=== PATIENT | male | born 1985 | race Caucasian/White ===

== ENCOUNTER 2016-12-09 18:05 | Emergency (ER) | payer OTHER ==
[2016-12-09] MEDS ORDERED: Metoclopramide IV* 5 MG/ML 2 ML VIAL IV ONE (19:55)
[2016-12-09] MEDS ORDERED: NS 0.9% 1000 ML* 1,000 ML IV ONE (19:55)
[2016-12-09] MEDS ORDERED: diPHENhydraMINE IV* 50 MG/ML 1 ml VIAL (BENADRYL) IV ONE (19:55)
[2016-12-09] MEDS ORDERED: Ketorolac INJ* 30 MG/ML 1 ML VIAL IV ONE (19:55)
--- NOTE | 2016-12-09 20:24 | RAD ---
INDICATION: Headaches COMPARISON: None TECHNIQUE: Noncontrast axial source images were acquired from the skull base to the vertex. FINDINGS: Ventricles/sulci: The ventricles and cisterns are normal in size and configuration for age. Brain parenchyma: There is no focal parenchymal finding, evidence of intracranial mass, or intracranial mass effect. Intracranial hemorrhage:None. Extra-axial spaces: There are no abnormal extra axial fluid collections or evidence of extra-axial mass. Calvarium: There is no calvarial fracture or other calvarial abnormality. Scalp: There is no evidence of scalp or extracalvarial soft tissue abnormality. Paranasal sinuses/mastoid: The paranasal sinuses and mastoid air cells are clear. Other: None. IMPRESSION: NO ACUTE INTRACRANIAL FINDINGS
[2016-12-09 20:39] LABS: Hematocrit 48 % (42-52); Hemoglobin 16.4 g/dl (14.0-18.0); Mean Corpuscular HGB Conc 34 g/dl (31-36); Mean Corpuscular Hemoglobin 31 pg (27-31); Mean Corpuscular Volume 91 fL (80-94); Mean Platelet Volume 8 um3 (7.4-10.4); Red Blood Count 5.28 10^6/ul (4.0-5.4); Red Cell Distribution Width 14 % (10.5-15); White Blood Count 7.4 10^3/ul (3.5-10.8)
[2016-12-09 20:54] LABS: Albumin 4.5 g/dL (3.2-5.2); BUN/Creatinine Ratio 14.8 (8-20); Calcium 10.2 mg/dL (8.6-10.3); EGFR African American 128.3 (>60); EGFR Non-African American 99.7 (>60); Globulin 3.1 g/dL (2-4); Total Bilirubin 0.5 mg/dL (0.2-1.0); Total Protein 7.6 g/dL (6.4-8.9)
[2016-12-09] MEDS ORDERED: Morphine INJ* 4 MG/ML 1 ML CARPUJECT IV ONE (21:00)
[2016-12-09 21:26] LABS: Urine Bacteria Absent (Absent); Urine Bilirubin Negative (Negative); Urine Glucose Negative (Negative); Urine Nitrite Negative (Negative)
[2016-12-09 21:28] LABS: Erythrocyte Sed Rate 6 mm/Hr (0-14)
--- NOTE | 2016-12-09 21:30 | ED ---
williams Snyder Timothy, scribed for Jose Arteaga MD on 12/09/16 at 1952 . Headache - HPI Summary HPI Summary: Ck Black is a 31 yo male presenting to [facility] with 10/10 PATEL for the past month , and now is experiencing intermittent sharp, non-radiating CP for the past month as well. He states he occasionally has SOB, but attributes this to asthma. The PATEL is in the top of his head, and he states his neck is sore. He is photophobic, but denies fever, sore throat, or nasal discharge. He also c/o nausea and feelings of weakness. He also has lost his appetite. His girlfriend present in room states his heart races when he lies down at night. He has self- medicated with excedrin migraine. His MHx includes asthma, esophageal ulcer, and marijuana and tobacco use. - History Of Current Complaint Chief Complaint: EDChestPainROMI Stated Complaint: CHEST PAIN, DIZZY , Time Seen by Provider: 12/09/16 19:44 Hx Obtained From: Patient Onset/Duration: Gradual Onset, Started weeks ago, Still Present Initially Headache Was: Initial Pain Scale(0-10)= - 10 Currently Pain Is: Current Pain Scale(0-10)= - 10 Timing: Intermittent, Lasting: Character: Typical Headache Location of Headache: Parietal Aggravating Factor: Bright Lights Allevating Factors: Nothing Associated Signs And Symptoms: Nausea, Neck Pain, Visual Changes - photophobia - Allergies/Home Medications Allergies/Adverse Reactions: Allergies Allergy/AdvReac Type Severity Reaction Status Date / Time Aspirin Allergy Shortness Verified 05/22/16 20:56 of Breath PMH/Surg Hx/FS Hx/Imm Hx Endocrine/Hematology History: Denies: Hx Diabetes, Hx Thyroid Disease Cardiovascular History: Denies: Hx Hypertension, Hx Pacemaker/ICD Respiratory History: Reports: Hx Asthma - albuterol inhaler as needed Denies: Hx Chronic Obstructive Pulmonary Disease (COPD) GI History: Reports: Hx Ulcer - esophageal Sensory History: Denies: Hx Hearing Aid Psychiatric History: Denies: Hx Panic Disorder Infectious Disease History: No Infectious Disease History: Denies: Hx Clostridium Difficile, Hx Hepatitis, Hx Human Immunodeficiency Virus (HIV), Hx of Known/Suspected MRSA, Hx Shingles, Hx Tuberculosis, Hx Known/ Suspected VRE, Hx Known/Suspected VRSA, History Other Infectious Disease, Traveled Outside the [place] in Last 30 Days - Family History Known Family History: Positive: Cardiac Disease, Hypertension, Diabetes, Other - pancreatic CA, sleep apnea - Social History Alcohol Use: None Substance Use Type: Reports: Marijuana Substance Use Comment - Amount & Last Used: occasionally Smoking Status (MU): Heavy Every Day Tobacco Smoker Type: Cigarettes Amount Used/How Often: 1PPD Length of Time of Smoking/Using Tobacco: 15+years Have You Smoked in the Last Year: Yes Review of Systems Constitutional: Negative Positive: Photophobia ENT: Other - neck soreness Cardiovascular: Negative Positive: Shortness Of Breath - attributed to asthma Positive: Nausea Genitourinary: Negative Musculoskeletal: Negative Skin: Negative Positive: Headache, Weakness Psychological: Normal All Other Systems Reviewed And Are Negative: Yes Physical Exam Vital Signs On Initial Exam: Initial Vitals Temp Pulse Resp BP Pulse Ox 97.2 F 79 20 151/91 100 12/09/16 18:06 12/09/16 18:06 12/09/16 18:06 12/09/16 18:06 12/09/16 18:06 Diagnostics - Vital Signs Vital Signs Temp Pulse Resp BP Pulse Ox 12/09/16 19:27 148/82 99 12/09/16 18:06 97.2 F 79 20 151/91 100 - Laboratory Lab Results: Lab Results 12/09/16 12/09/16 12/09/16 Range/Units 20:25 20:25 20:25 WBC 7.4 (3.5-10.8) 10^3/ul RBC 5.28 (4.0-5.4) 10^6/ul Hgb 16.4 (14.0-18.0) g/dl Hct 48 (42-52) % MCV 91 (80-94) fL MCH 31 (27-31) pg MCHC 34 (31-36) g/dl RDW 14 (10.5-15) % Plt Count 265 (150-450) 10^3/ul MPV 8 (7.4-10.4) um3 Neut % (Auto) 51.0 (38-83) % Lymph % (Auto) 37.0 (25-47) % Quay % (Auto) 8.1 (1-9) % Eos % (Auto) 3.5 (0-6) % Baso % (Auto) 0.4 (0-2) % Absolute Neuts (auto) 3.8 (1.5-7.7) 10^3/ul Absolute Lymphs (auto) 2.7 (1.0-4.8) 10^3/ul Absolute Monos (auto) 0.6 (0-0.8) 10^3/ul Absolute Eos (auto) 0.3 (0-0.6) 10^3/ul Absolute Basos (auto) 0 (0-0.2) 10^3/ul Absolute Nucleated RBC 0.01 10^3/ul Nucleated RBC % 0.1 ESR Pending Carbon Monoxide Screen 5.8 H (<3.5) % Sodium 138 (133-145) mmol/L Potassium 4.0 (3.5-5.0) mmol/L Chloride 102 (101-111) mmol/L Carbon Dioxide 32 (22-32) mmol/L Anion Gap 4 (2-11) mmol/L BUN 13 (6-24) mg/dL Creatinine 0.88 (0.67-1.17) mg/dL Est GFR ( Amer) 128.3 (>60) Est GFR (Non-Af Amer) 99.7 (>60) BUN/Creatinine Ratio 14.8 (8-20) Glucose 105 H (70-100) mg/dL Calcium 10.2 (8.6-10.3) mg/dL Total Bilirubin 0.50 (0.2-1.0) mg/dL AST 19 (13-39) U/L ALT 23 (7-52) U/L Alkaline Phosphatase 56 (34-104) U/L Total Protein 7.6 (6.4-8.9) g/dL Albumin 4.5 (3.2-5.2) g/dL Globulin 3.1 (2-4) g/dL Albumin/Globulin Ratio 1.5 (1-3) Result Diagrams: 12/09/16 20:25 12/09/16 20:25 Lab Statement: Any lab studies that have been ordered have been reviewed, and results considered in the medical decision making process. - CT Brain CT Interpretation: No Acute Changes - IMPRESSION: NO ACUTE INTRACRANIAL FINDINGS CT Interpretation Completed By: Radiologist - EKG 1814 Cardiac Rate: NL - 67 BPM EKG Interpretation: NSR @ 67 BPM, no ST elevations Headache Course/Dx - Course Assessment/Plan: Ck Black is a 31 yo male presenting to [facility] with CP, PATEL, nausea, photophobia, and weakness for the past month. Pt's blood work is within normal limits, excepting his glucose of 105. CT Brain showes no acute pathalogy. In the ED course, Pt was given benadryl, reglan, IV fluids, toradol, and morphine for pain management. Patient was offered a LP if symptoms do not improve. He declined. Pt's symptoms are improving. Pt has been having PATEL for 1 month, therefore, at this point, Pt will be d/c for follow up with his PCP. Pt has a undiagnosed, self-reported Hx of migraine PATEL, therefore, I believe these Sx are exacerbation of his condition. Pt is hemodynamically stable and A&Ox3. He displays no acute neurological focal deficits. I discussed all the findings and test results with the patient. Patient was instructed to return to the emergency room immediately if any of the symptoms return or worsens. Patient understands and agrees. Plan of care was discussed with the patient and patient understands and agrees with the plan of care. All questions were answered at patient satisfaction. There were no further complaints or concerns. Patient is alert and oriented x 3. Patient vital signs are stable. Patient is to follow up with primary care physician in the next 2 to 3 days. Patient understands and agrees. - Diagnoses Provider Diagnoses: Migraine headache Discharge - Discharge Plan Condition: Stable Disposition: HOME Patient Education Materials: Migraine Headache (ED) Referrals: Leatha Ellis MD [Primary Care Provider] - As Soon As Possible Additional Instructions: Please follow up with your primary care physician as soon as possible regarding your visit to the emergency department today. Return to the emergency department with any new or recurring symptoms. The documentation as recorded by the williams bernard Timothy accurately reflects the service I personally performed and the decisions made by me, Jose Arteaga MD.
[2016-12-09 21:34] LABS: Benzodiazepine Urine Screen Presumptive Positive (None Detect)
[2016-12-10 07:18] VITALS: BP 138/72
== END 2016-12-09 21:00 | disposition home or self-care (01) ==
LOC: ED 18:05
DX: G43.909 Migraine, unspecified, not intractable, without status migrainosus (principal); R11.0 Nausea; M54.2 Cervicalgia; R06.02 Shortness of breath; R51 Headache; F17.210 Nicotine dependence, cigarettes, uncomplicated
CPT/HCPCS: 36415; 70450; 80053; 80307; 81003; 81015; 82375; 85025; 85652; 86618; 87086; 93005; 96374; 96375; 99282; J1200; J1885; J2270; J2765

== ENCOUNTER 2017-12-24 19:59 | Emergency (ER) | payer OTHER ==
[2017-12-24 20:09] VITALS: BP 159/99
[2017-12-24] MEDS ORDERED: Albuterol/Ipratropium NEB.SOL* Albuterol 2.5 MG/Ipratropium 0.5 MG 3 ML INH ONE (20:22)
[2017-12-24] MEDS ORDERED: predniSONE TAB* 20 MG PO ONE (20:22)
--- NOTE | 2017-12-24 20:51 | RAD ---
HISTORY: Cough COMPARISONS: November 19, 2011 VIEWS: 4: Frontal dual-energy and lateral views of the chest. FINDINGS: CARDIOMEDIASTINAL SILHOUETTE: The cardiomediastinal silhouette is normal. MORELIA: The morelia are normal. PLEURA: The costophrenic angles are sharp. No pleural abnormalities are noted. LUNG PARENCHYMA: The lungs are clear. ABDOMEN: The upper abdomen is clear. There is no subphrenic gas. BONES AND SOFT TISSUES: Degenerative changes are noted along the spine. OTHER: None. IMPRESSION: NO ACTIVE CARDIOPULMONARY DISEASE.
--- NOTE | 2017-12-25 21:37 | UC ---
Shalom Snyder Gabriel, scribed for Jose Arteaga MD on 12/24/17 at 2022 . Cardiac HPI - HPI Summary HPI Summary: This patient is a 32 year old M presenting to [facility] with a chief complaint of CP since a week ago. The patient rates the pain 5/10 in severity. Symptoms aggravated by coughing. Patient reports cough, wheezing, lung pain, fever, diaphoresis, and PATEL. Patient denies GERD. - History of Current Complaint Chief Complaint: UCChestPain Stated Complaint: CHEST CONGESTION/pain Time Seen by Provider: 12/24/17 20:09 Hx Obtained From: Patient Onset/Duration: Lasting Weeks, Still Present Timing: Constant Initial Severity: Moderate Pain Intensity: 5 Associated Signs & Symptoms: Positive: Negative - GERD, Fever, Diaphoresis - Allergy/Home Medications Allergies/Adverse Reactions: Allergies Allergy/AdvReac Type Severity Reaction Status Date / Time aspirin Allergy Shortness Verified 12/24/17 20:14 of Breath Home Medications: Home Medications Al Hydrox/Mg Hydrox/Rosalino BULK* [Mylanta - BULK BOT*] 6 teasp PO Q8HR 12/24/17 [ History Confirmed 12/24/17] PMH/Surg Hx/FS Hx/Imm Hx Respiratory History: Asthma GI/ History: Gastroesophageal Reflux - Surgical History Surgical History: None - Family History Known Family History: Positive: Cardiac Disease, Hypertension, Diabetes, Other - pancreatic CA, sleep apnea - Social History Occupation: Employed Full-time Alcohol Use: None Substance Use Type: Marijuana Substance Use Comment - Amount & Last Used: occasionally Smoking Status (MU): Former Smoker Type: Cigarettes Amount Used/How Often: 1PPD Length of Time of Smoking/Using Tobacco: 15+years Have You Smoked in the Last Year: Yes Household Exposure Type: Cigarettes Review of Systems Constitutional: Fever, Other - diaphoresis Respiratory: Cough, Other - wheezing Neurological: Headache All Other Systems Reviewed And Are Negative: Yes Physical Exam - Summary Physical Exam Summary: VITAL SIGNS: Reviewed. GENERAL: Patient is a well developed and nourished M who is lying comfortable in the stretcher. Patient is not in any acute respiratory distress. HEAD AND FACE: Normocephalic EYES: PERRLA, EOMI x 2. EARS: Hearing grossly intact. MOUTH: Oropharynx within normal limits. NECK: Supple, trachea is midline, no adenopathy, no JVD, no carotid bruit. CHEST: Symmetric, no tenderness at palpation LUNGS: Clear to auscultation bilaterally. Coarse bilat breath sounds, bilat wheezing CVS: Regular rate and rhythm, S1 and S2 present, no murmurs or gallops appreciated. ABDOMEN: Soft, non-tender. Bowel sounds are normal. No abdominal abnormal pulsations. EXTREMITIES: Full ROM in all major joints, no edema, no cyanosis or clubbing. NEURO: Alert and oriented x 3. No acute neurological deficits. Speech is normal and follows commands. SKIN: Dry and warm Triage Information Reviewed: Yes Vital Signs: Initial Vital Signs Temp 97.1 F 12/24/17 20:01 Pulse 69 12/24/17 20:01 Resp 20 12/24/17 20:01 BP 159/99 12/24/17 20:01 Pulse Ox 97 12/24/17 20:01 Vital Signs Reviewed: Yes Diagnostics - EKG Cardiac Rate: NL - taken at 0806. 61 BPM Cardiac Rhythm: Sinus: Normal - no ST elevations - Assessment/Plan Course Of Treatment: The patient was found to have increased BP in UC. The patient will follow up with PCP for better control of BP. An EKG reveals NSR. CXR reveals no active cardiopulmonary disease. Pt was negative for influenza A and B . I discussed all the findings and test results with the patient. Patient was instructed to return to the urgent care or go to ER immediately if any of the symptoms return or worsens. Plan of care was discussed with the patient, and patient understands and agrees. All questions were answered to patient satisfaction. There were no further complaints or concerns. - Clinical Impression Provider Diagnoses: Elevated blood pressure without a previous diagnoses of hypertension, acute bronchitis, and asthma. Discharge - Sign-Out/Discharge Documenting (check all that apply): Discharge - Discharge Plan Condition: Stable Disposition: HOME Prescriptions: Azithromyxin ABDOUL (NF) [Z-Abdoul (Zithromax) 250 mg tabs #6] 2 tab PO .TODAY, THEN 1 DAILY #6 tab predniSONE TAB* [Deltasone TAB*] 40 mg PO DAILY #8 tab Patient Education Materials: Asthma (DC), Acute Bronchitis (ED) Referrals: Leatha Ellis MD [Primary Care Provider] - Additional Instructions: Your blood pressure was elevated during today's visit. Please follow up with your primary care provider in 1-2 weeks. Take medications as instructed Increase your fluid intake Return to the UC if symptoms worsen The documentation as recorded by the Shalom bernard Gabriel accurately reflects the service I personally performed and the decisions made by me, Jose Arteaga MD.
== END 2017-12-24 21:10 | disposition home or self-care (01) ==
LOC: UCEAST 19:59
DX: J20.9 Acute bronchitis, unspecified (principal); J45.909 Unspecified asthma, uncomplicated; R03.0 Elevated blood-pressure reading, without diagnosis of hypertension; K21.9 Gastro-esophageal reflux disease without esophagitis; Z88.6 Allergy status to analgesic agent; Z87.891 Personal history of nicotine dependence
CPT/HCPCS: 71046; 87502; 93005; 99212; A9270-GY; G0463; J7512

== ENCOUNTER 2018-07-14 20:28 | Emergency (ER) | payer OTHER ==
[2018-07-14 20:34] VITALS: BP 154/104
--- NOTE | 2018-07-14 21:07 | ED ---
Back Pain - HPI Summary HPI Summary: left flank pain with radiation around to the left lower quadrant, no pain in the groin or testicle. no hematuria, no hxl of kidney stones in the past. - History of Current Complaint Chief Complaint: UCGeneralIllness Stated Complaint: FLANK PAIN Time Seen by Provider: 07/14/18 20:42 Hx Obtained From: Patient Onset/Duration: Sudden Onset, Lasting Days Onset/Duration: Started Days Ago Pain Intensity: 5 Character: Sharp, Aching Associated Signs And Symptoms: Positive: Abdominal Pain, Flank Pain, Other - loss of appetite - Risk Factors AAA Risk Factors: Negative TAD Risk Factors: Negative Cauda Equina Risk Factors: Negative Epidural Abscess Risk Factors: Negative - Allergies/Home Medications Allergies/Adverse Reactions: Allergies Allergy/AdvReac Type Severity Reaction Status Date / Time aspirin Allergy Shortness Verified 07/14/18 20:34 of Breath Home Medications: Home Medications Buprenorphine HCl/Naloxone HCl [Suboxone 8 mg-2 mg Sl Film] 1 each PO DAILY 07/22 [History Confirmed 07/14/18] PMH/Surg Hx/FS Hx/Imm Hx Previously Healthy: Yes Endocrine/Hematology History: Denies: Hx Diabetes, Hx Thyroid Disease Cardiovascular History: Denies: Hx Hypertension, Hx Pacemaker/ICD Respiratory History: Reports: Hx Asthma - albuterol inhaler as needed Denies: Hx Chronic Obstructive Pulmonary Disease (COPD) GI History: Reports: Hx Ulcer - esophageal Sensory History: Denies: Hx Hearing Aid Psychiatric History: Denies: Hx Panic Disorder Infectious Disease History: No Infectious Disease History: Denies: Hx Clostridium Difficile, Hx Hepatitis, Hx Human Immunodeficiency Virus (HIV), Hx of Known/Suspected MRSA, Hx Shingles, Hx Tuberculosis, Hx Known/ Suspected VRE, Hx Known/Suspected VRSA, History Other Infectious Disease, Traveled Outside the [place] in Last 30 Days - Family History Known Family History: Positive: Cardiac Disease, Hypertension, Diabetes, Other - pancreatic CA, sleep apnea - Social History Alcohol Use: None Substance Use Type: Reports: None Substance Use Comment - Amount & Last Used: occasionally Hx Tobacco Use: Yes Smoking Status (MU): Former Smoker Type: Cigarettes Amount Used/How Often: 1PPD Length of Time of Smoking/Using Tobacco: 15+years Have You Smoked in the Last Year: Yes Review of Systems Constitutional: Negative Eyes: Negative ENT: Negative Cardiovascular: Negative Positive: Other - pleuritic pain Gastrointestinal: Other Positive: Other - loss of appetite Genitourinary: Negative Skin: Negative Neurological: Negative Psychological: Normal All Other Systems Reviewed And Are Negative: Yes Physical Exam Triage Information Reviewed: Yes Vital Signs On Initial Exam: Initial Vitals Temp Pulse Resp BP Pulse Ox 36.8 C 76 16 154/104 99 07/14/18 20:29 07/14/18 20:29 07/14/18 20:29 07/14/18 20:29 07/14/18 20:29 Vital Signs Reviewed: Yes Appearance: Positive: Well-Appearing Skin: Positive: Warm, Dry Eyes: Positive: Normal ENT: Positive: Normal ENT inspection Respiratory/Lung Sounds: Positive: Clear to Auscultation Cardiovascular: Positive: Normal Abdomen Description: Positive: Nontender, Other: - no signficant tenderness on palpatoin, no rebound, normal bowel sounds Bowel Sounds: Positive: Present Musculoskeletal: Positive: Normal Neurological: Positive: Normal Diagnostics - Vital Signs Vital Signs Temp Pulse Resp BP Pulse Ox 07/14/18 20:29 36.8 C 76 16 154/104 99 - Laboratory Lab Statement: Any lab studies that have been ordered have been reviewed, and results considered in the medical decision making process. Back Pain Course/Dx - Diagnoses Provider Diagnoses: Left flank pain Discharge - Sign-Out/Discharge Documenting (check all that apply): Patient Departure All imaging exams completed and their final reports reviewed: Yes - Discharge Plan Condition: Fair Disposition: HOME Referrals: Leatha Ellis MD [Primary Care Provider] - Additional Instructions: needs further evaluation of left flank pain r/o diverticulitis - Billing Disposition and Condition Condition: FAIR Disposition: Home
--- NOTE | 2018-07-15 07:58 | RAD ---
HISTORY: pleuritic pain COMPARISONS: December 24, 2017 VIEWS: 4: Frontal dual-energy and lateral views of the chest. FINDINGS: CARDIOMEDIASTINAL SILHOUETTE: The cardiomediastinal silhouette is normal. MORELIA: The morelia are normal. PLEURA: The costophrenic angles are sharp. No pleural abnormalities are noted. LUNG PARENCHYMA: The lungs are clear. ABDOMEN: The upper abdomen is clear. There is no subphrenic gas. BONES AND SOFT TISSUES: No bone or soft tissue abnormalities are noted. OTHER: None. IMPRESSION: NO ACTIVE CARDIOPULMONARY DISEASE. R0
== END 2018-07-14 21:49 | disposition home or self-care (01) ==
LOC: UCEAST 20:28
DX: R10.32 Left lower quadrant pain (principal); R07.81 Pleurodynia; J45.909 Unspecified asthma, uncomplicated; Z88.6 Allergy status to analgesic agent; Z87.891 Personal history of nicotine dependence
CPT/HCPCS: 71046; 81003; 99211; G0463

== ENCOUNTER 2019-02-25 06:29 | Day surgery (SDC) | payer OTHER ==
[~2019-02-25 06:29] MED LIST: Buffered Lidocaine 1% SYRIN* 1 ML/SYRINGE INTRADERM ONE; Dexamethasone IV* 4 MG/ML 1 ML (4 MG) IV SLOW PU ONE; Dexamethasone IV* 4 MG/ML 1 ML (4 MG) ONE; Famotidine IV* 10 MG/ML 2 ML (20 mg) IV ONE; Famotidine IV* 10 MG/ML 2 ML (20 mg) ONE; Lactated Ringers 1000 ML Bag* 1,000 ML IV SCH
[2019-02-25] MEDS ORDERED: ceFAZolin 2 GM PREMIX in ORs 2 GM/50 ML BAG IVPB ONE (06:35)
[2019-02-25] MEDS ORDERED: fentaNYL* 50 MCG/ML 2 ML VIAL (100 MCG VIAL) ONE (07:02)
[2019-02-25] MEDS ORDERED: Midazolam* 1 MG/ML 5 ML VIAL (5 MG) ONE (07:02)
[2019-02-25] MEDS ORDERED: Lidocaine 1% INJ* 10 MG/ML 30 ML SDV ONE (07:07)
[2019-02-25] MEDS ORDERED: Bupivacaine 0.5% SDV PF* 30ML VIAL ONE (07:08)
[2019-02-25] MEDS ORDERED: Naloxone* 0.4 MG/ML 1 ML VIAL IV PRN (07:18)
[2019-02-25] MEDS ORDERED: DiMENhydriNATE IV* 50 MG/ML VIAL IV PUSH PRN (07:18)
[2019-02-25] MEDS ORDERED: oxyCODONE/Acetamin 5/325 MG* TAB PO PRN (07:18)
[2019-02-25] MEDS ORDERED: fentaNYL* 50 MCG/ML 2 ML VIAL (100 MCG VIAL) IV PRN (07:18)
[2019-02-25] MEDS ORDERED: Propofol* 10 MG/ML 20 ML BTL ONE (07:23)
[2019-02-25] MEDS ORDERED: Lidocaine 2% PF * 5 ML VIAL ONE (07:23)
[2019-02-25] MEDS ORDERED: Ketorolac INJ* 30 MG/ML 1 ML VIAL ONE (07:36)
[2019-02-25] MEDS ORDERED: Ondansetron INJ* 2 MG/ML VIAL ONE (08:03)
[2019-02-25 09:21] VITALS: BP 135/72
--- NOTE | 2019-02-25 16:06 | OP ---
CC: Dr. Hart OPERATIVE NOTE: DATE OF OPERATION: 02/25/19 DATE OF : 81 SURGEON: Dr. Hart. LEAF SUCKER OPERATOR: BRIANA Lloyd ANESTHESIA: General. PRE-OP DIAGNOSIS: Carpal tunnel syndrome on the left and ulnar nerve compression at the left elbow. POST-OP DIAGNOSIS: Carpal tunnel syndrome on the left and ulnar nerve compression at the left elbow. PROCEDURE: Left ulnar nerve decompression at the elbow and left carpal tunnel release. ESTIMATED BLOOD LOSS: Zero. TOURNIQUET TIME: About 30 minutes. INDICATIONS FOR PROCEDURE: Ck is a 33-year-old male who has numbness and tingling in his bilatera l hands. Nerve conduction studies are consistent with carpal tunnel syndrome and exam is consistent also with ulnar nerve compression at the both elbows. He presents for left ulnar nerve decompression at the elbow and left carpal tunnel release. OPERATIVE PROCEDURE: The patient was brought to the operating room, was given a general anesthetic a nd placed in a supine position on the operating table with a tourniquet around his left upper arm. S kin of his left upper extremity was prepped and draped in usual sterile fashion. The hand and forear m were exsanguinated and the tourniquet elevated to 150 mmHg. A longitudinal incision was made in th e palm in line with the ring finger. We dissected through the subcutaneous tissue down to the transv erse carpal ligament. The ligament was divided sharply with a knife and then more proximally with th e scissors. The nerve was dissected free from surrounding tissue and there was an area of moderate c ompression at the midportion of the ligament. The wound was irrigated and the skin edges reapproxima daria with 4- 0 nylon suture. Next, a curvilinear incision was made centered between the medial epicon dyle and the tip of the olecranon process. We dissected through the subcutaneous tissue down to the ulnar nerve proximally. The nerve was carefully dissected out proximally and then was noted to have a significant compression in the cubital tunnel. It was dissected out through the cubital tunnel and through the FCU fascia both superficial and deep. This completely released the nerve, which as note d above was markedly compressed at the cubital tunnel and swollen proximal to the cubital tunnel. Th e wound was irrigated. The subcutaneous tissue was closed with 2-0 Polysorb and the skin with skin s taples. The wounds were dressed with Xeroform, 4x4, Webril, and Saul wrap. The patient tolerated the procedure well and was brought to the recovery room in good condition. [id number] #: [id number]
== END 2019-02-25 09:14 | disposition home or self-care (01) ==
LOC: OREAST 06:29
PROVIDERS: ATTEND Orthopaedic Surgery
DX: G56.02 Carpal tunnel syndrome, left upper limb (principal); G56.22 Lesion of ulnar nerve, left upper limb; J45.909 Unspecified asthma, uncomplicated; K21.9 Gastro-esophageal reflux disease without esophagitis; F41.9 Anxiety disorder, unspecified; Z87.891 Personal history of nicotine dependence
CPT/HCPCS: J0690; J1100; J1885; J2250; J2405; J2704; J3010; J3490

== ENCOUNTER → 2019-06-30 10:28 | Day surgery (SDC) | payer OTHER ==
[~2019-06-30 10:28] MED LIST changes: +Acetaminophen TAB* 325 MG PO PRN; +Desflurane* 240 ML INH ONE; -Dexamethasone IV* 4 MG/ML 1 ML (4 MG) IV SLOW PU ONE; +DiMENhydriNATE IV* 50 MG/ML VIAL IV PUSH PRN; -Famotidine IV* 10 MG/ML 2 ML (20 mg) IV ONE; +KETAMINE HCL* 50 MG/ML 10 ML VIAL ONE; +Labetalol IV* 5 MG/ML 20 ML VIAL ONE; +Levalbuterol 0.63MG/3ML NEB* UNIT OF USE INH ONE; +Levalbuterol 0.63MG/3ML NEB* UNIT OF USE INH PRN; +Lidocaine 2% PF * 5 ML VIAL ONE; +Midazolam* 1 MG/ML 5 ML VIAL (5 MG) ONE; +Naloxone* 0.4 MG/ML 1 ML VIAL IV PRN; +Ondansetron INJ* 2 MG/ML VIAL IV PRN; +Propofol* 10 MG/ML 20 ML BTL ONE; +Succinylcholine* 20 MG/ML 10 ML VIAL ONE; +diPHENhydraMINE IV* 50 MG/ML 1 ml VIAL (BENADRYL) IV PRN; +diPHENhydraMINE IV* 50 MG/ML 1 ml VIAL (BENADRYL) ONE
[2019-06-30 16:24] VITALS: BP 144/97
--- NOTE | 2019-06-30 21:57 | PRO ---
CC: Dr. Jose Cha * EGD AND COLONOSCOPY REPORT: DATE OF PROCEDURE: 06/30/[address] - [facility] PRIMARY CARE PHYSICIAN: Dr. Jose Cha. INDICATION FOR PROCEDURE: GERD, constipation. PROCEDURE PERFORMED: Complete esophagogastroduodenoscopy with biopsies and complete colonoscopy to the terminal ileum with biopsy polypectomy x5. MEDICATIONS GIVEN: Please see Anesthesia record. DESCRIPTION OF PROCEDURE: After the EGD and colonoscopy procedure including the risks, benefits, and alternatives with the risks not limited to perforation , surgery, missed lesions, and/or were explained to the patient, written informed consent was obtained, IV medication was given, and a bite-block was placed between the teeth. The adult Olympus gastroscope was then inserted into the patient's oropharynx into the tubular esophagus. The tubular esophagus had mild reflux esophagitis, this was biopsied, did not appear to be Buchanan's but biopsies were obtained. The scope was then advanced through the lower esophageal sphincter into the stomach. There were some superficial gastric erosions within the body, these were biopsied and also CLOtest was performed in the antrum. On retroflexion, there was no significant hiatal hernia appreciated. The scope was then advanced through the widely patent pylorus into the duodenal bulb, C-loop, distal duodenum and these were normal in appearance. Biopsies were taken to rule out celiac disease. The scope was then removed from the patient. He was then rotated, given additional IV medication by the anesthesia team. A rectal exam was performed. The rectal exam was unremarkable. The adult Olympus colonoscope was then inserted into the patient's rectum and advanced very carefully through the entirety of the colon into the cecal base. Cecal base was carefully inspected and normal in appearance. The terminal ileal valve was identified and intubated x4 to 5 cm and normal. The scope was then returned to the cecum. A photograph was taken of the cecal cap. Five polyps were removed with biopsy polypectomy in entirety. Withdrawal time of 10 minutes was done. On return to the rectum, direct views were normal. On retroflexion, grade 1 internal hemorrhoids were appreciated. The scope was then removed from the patient. He tolerated the procedure well. He returned to the recovery room in stable condition. IMPRESSION: 1. Complete esophagogastroduodenoscopy with biopsies. 2. Mild reflux esophagitis, biopsied. 3. Gastric erosions, biopsied. 4. Normal duodenum, biopsied. 5. Complete colonoscopy to the terminal ileum with biopsy polypectomy x5. 6. Good prep. 7. Grade 1 internal hemorrhoids. RECOMMENDATIONS: Discussed the need to avoid NSAIDs that is likely the etiology of the gastric erosions including the aspirin with Excedrin Migraine. We will continue PPI therapy; it is controlling his reflux and also protective for the gastric erosions. Continue to avoid all NSAIDs as much as possible. Tylenol is safe. In addition, he is doing well on MiraLAX therapy. He is moving his bowels on a daily basis. Recommend continuation of that. I would recommend a repeat colonoscopy in 10 years for screening purposes unless these are adenomas on biopsy, then would recommend a sooner screening based on the pathology. [id number] #: [id number]
== END | disposition home or self-care (01) ==
LOC: OR 10:28
PROVIDERS: ATTEND Internal Medicine Gastroenterology
DX: K21.0 Gastro-esophageal reflux disease with esophagitis (principal); K25.9 Gastric ulcer, unspecified as acute or chronic, without hemorrhage or perforation; K63.5 Polyp of colon; K59.00 Constipation, unspecified; K64.0 First degree hemorrhoids
CPT/HCPCS: 87077; 88305; 88342; J0330; J1100; J1200; J2250; J2704

== ENCOUNTER 2019-12-26 13:41 | Emergency (ER) | payer OTHER ==
--- NOTE | 2019-12-26 14:18 | UC ---
[facility] HPI HPI Summary: 34-year-old male with history of asthma presents to urgent care with complaints of a persistent cough and shortness of breath. Patient states that he has been having URI symptoms for the past week including nasal congestion, mild sore throat, and occasionally productive cough for clear to yellow sputum. States the nasal congestion and sore throat have pretty much resolved however cough has remained unchanged. No measured fever although has had a couple episodes of chills. States he has been using his albuterol inhaler and/or nebulizer about every 4 hours while awake with good relief in his shortness of breath. Daughter was diagnosed with pneumonia 2 weeks ago. Did not receive his flu shot this season. States he called out of work Thursday due to a migraine headache with nausea and was instructed by his employer that he could not return until evaluated. No recent travel and has no known exposure to persons isolated for her diagnosed with COVID-19. Denies ear pain, dysphagia, chest pain, palpitations, weakness, dizziness, abdominal pain, vomiting, or diarrhea. [facility] Endocrine/Hematology History: Denies: Hx Diabetes, Hx Thyroid Disease Cardiovascular History: Denies: Hx Hypertension, Hx Pacemaker/ICD Respiratory History: Reports: Hx Asthma - albuterol inhaler as needed, Hx Sleep Apnea - WAITING ROR RESULTS Denies: Hx Chronic Obstructive Pulmonary Disease (COPD) GI History: Reports: Hx Gastroesophageal Reflux Disease - ON MEDS PT. STATES CONTROLLED, Hx Hiatal Hernia, Hx Ulcer - esophageal, Other GI Disorders - CHRONIC CONSTIPATION Musculoskeletal History: Reports: Other Musculoskeletal History - DDD LOWER back Sensory History: Denies: Hx Contacts or Glasses, Hx Hearing Aid Opthamlomology History: Denies: Hx Contacts or Glasses Neurological History: Reports: Hx Headaches, Hx Migraine - no meds EXCEPT EXCEDRINE Psychiatric History: Reports: Hx Anxiety Denies: Hx Panic Disorder - Cancer History Hx Chemotherapy: No - Surgical History Surgery Procedure, Year, and Place: PARTIAL EGD 04/22. CARPAL TUNNEL RELEASE LEFT ELBOW 01/21 DR. KYLIE Montgomery Anesthesia Reactions: No - Family History Known Family History: Positive: Cardiac Disease, Hypertension, Diabetes, Other - pancreatic CA, sleep apnea - Social History Occupation: Employed Full-time Lives: With Family Alcohol Use: None Substance Use Type: Reports: Marijuana Substance Use Comment - Amount & Last Used: OCCASIONAL MARIJUANA Hx Tobacco Use: Yes Smoking Status (MU): Former Smoker Type: Cigarettes Amount Used/How Often: 1PPD Length of Time of Smoking/Using Tobacco: 15+years Have You Smoked in the Last Year: Yes Telehealth ROS All Other Systems Reviewed And Are Negative: Yes Positive: Chills, Fatigue. Negative: Fever Negative: Drainage, Erythema Positive: Nasal Discharge Negative: Chest Pain Positive: Shortness Of Breath, Cough Positive: Nausea. Negative: Abdominal Pain, Vomiting, Diarrhea Genitourinary: Negative Musculoskeletal: Negative Skin: Negative Positive: Headache Telehealth PE Telehealth Physical Exam: Physical exam limited due to telemedicine out of concern for COVID-19. Patient did not appear to be in any acute respiratory distress and was able to speak in full sentences. Directly observed by Claribel Paredes RN who reports no distress. [facility] Course/Dx Assessment/Plan: 34-year-old male with history of asthma presents to urgent care with complaints of a persistent cough and shortness of breath. Patient states that he has been having URI symptoms for the past week including nasal congestion, mild sore throat, and occasionally productive cough for clear to yellow sputum. States the nasal congestion and sore throat have pretty much resolved however cough has remained unchanged. No measured fever although has had a couple episodes of chills. States he has been using his albuterol inhaler and/or nebulizer about every 4 hours while awake with good relief in his shortness of breath. Daughter was diagnosed with pneumonia 2 weeks ago. Did not receive his flu shot this season. States he called out of work Thursday due to a migraine headache with nausea and was instructed by his employer that he could not return until evaluated. No recent travel and has no known exposure to persons isolated for her diagnosed with COVID-19. Denies ear pain, dysphagia, chest pain, palpitations, weakness, dizziness, abdominal pain, vomiting, or diarrhea. Due to the concern for COVID-19 patients history and assessment were conducted via telephone therefore physical examination was limited. After obtaining patient history we discussed that I had a very low suspicion for COVID -19 infection and recommended treatment for an upper respiratory infection with asthma exacerbation. Will treat with Augmentin 875 mg twice a day [address] him on a short prednisone burst of 50 mg daily 5 days as well as recommend symptomatic treatment. He is to follow-up with his primary care provider in 3 days if symptoms are not improving. Anticipatory guidance and warning symptoms were reviewed with the patient. Verbalizes understanding and agrees with plan of care. Provider Diagnoses: URI (upper respiratory infection), Asthma exacerbation [facility] Telehealth Disposition Provider Recommendation for Treatment: Urgent Care Telehealth Visit: Patient Consented Verbally to Telehealth Visit Telehealth Patient Statement: The patient should understand that they are communicating with their provider via a secure communication platform and that all the same privacy and confidentiality rules apply. They will also be responsible for copayments or coinsurances that apply to any Telehealth visit. Patient Identifiers: 2 Patient Identifiers Verified for Telehealth Visit Telehealth Visit Start Time: 14:40 Telehealth Visit End Time: 15:15 Telehealth Provider Attestation: The above services were appropriate to provide in a Telehealth setting.
== END 2019-12-26 15:50 | disposition home or self-care (01) ==
LOC: UCEAST 13:41
DX: J06.9 Acute upper respiratory infection, unspecified (principal); J45.901 Unspecified asthma with (acute) exacerbation; K21.9 Gastro-esophageal reflux disease without esophagitis; Z79.899 Other long term (current) drug therapy; Z87.891 Personal history of nicotine dependence
CPT/HCPCS: 99202; G0463; Q3014